=== PATIENT | female | born 2000 | race Caucasian/White ===

== ENCOUNTER 2023-01-06 19:48 | Emergency (ER) | payer MEDICAID, SELFPAY ==
[2023-01-06 19:51] VITALS: BP 130/92; PULSE 90; RESP 18; TEMP 36.6; O2SAT 100; BMI 25.8
--- NOTE | 2023-01-06 19:51 | ED.SKABFB ---
HPI - Skin/Abscess/Foreign Bdy General Chief complaint: Skin/Abscess/Foreign Body Stated complaint: rash on neck and stomach Time Seen by Provider: 01/06/23 19:55 Source: patient Mode of arrival: ambulatory Limitations: no limitations History of Present Illness HPI narrative: 22 yo female presents to the ER for evaluation of a red, raised, itchy rash on her neck and abdomen that started 5 days ago. She thought it was eczema so she was putting hydrocortisone cream on it with no improvement. She states she also tried Icy Hot because the itch was keeping her up at night. She denies any new lotions, soaps or detergents. No facial swelling, lip swelling or SOB. No outdoor exposures to poison gurdeep. MD complaint: rash Onset (ago): day(s) (5) Location: neck (& abdomen) Severity: moderate Quality: burning and pruritic Pain Consistency: constant Relieving factors: none Exacerbating factors: none Context: none Associated symptoms: denies other symptoms Treatments prior to arrival: OTC topical medication Related Data Previous Rx's Medication Instructions Recorded diphenhydramine HCl 25 mg tablet 50 mg PO TID PRN itching #30 tabs 01/06/23 (Benadryl Allergy) hydrocortisone 2.5 % topical 1 appl topical BID PRN itching #20 01/06/23 ointment grams prednisone 50 mg tablet 50 mg PO DAILY #5 tabs 01/06/23 Allergies Allergy/AdvReac Type Severity Reaction Status Date / Time No Known Allergies Allergy Verified 01/06/23 19:53 Review of Systems Review of Systems: Yes all other systems are reviewed and are negative Physical Exam Vital Signs: Vital Signs: Last Vital Signs Temp 97.8 F 01/06/23 19:51 Pulse 90 01/06/23 19:51 Resp 18 01/06/23 19:51 BP 130/92 H 01/06/23 19:51 Pulse Ox 100 01/06/23 19:51 O2 Del Method Room Air 01/06/23 19:51 BMI result Body Mass Index 25.8 Appearance: Alert. Oriented X3. No acute distress. HEENT: normal external inspection CVS: Normal heart rate and rhythm. Pulses normal. Respiratory: No respiratory distress. Skin: Skin warm and dry. Normal skin color. Normal skin turgor. There is a erythematous, raised, area of patchy lesions on the left side of the neck extending from below the ear to just above the clavicle. There is a large, slightly raised, erythematous patch of skin on her right lower quadrant of her abdomen, at least 10 cm around that is warm, nontender, urticarial in appearance Extremities: Normal inspection x4, no joint swelling, no rash on her extremities. Neuro: Oriented X 3. Grossly normal, nonfocal Medical Decision Making Medical Decision Making MDM Narrative: 22-year-old female presents to the ER for evaluation of a pruritic, erythematous rash on her neck and abdomen for the last 5 days. The appearance of the rash on the neck and abdomen have different morphologies. They are both itchy, red and warm however. Will relief with topical steroids. Will plan to start systemic steroids and Benadryl for her rash in symptoms. She will follow-up with her primary care doctor. She is stable for discharge home. Return precautions were discussed. Differential Diagnosis Differential Diagnoses: The differential diagnosis associated with the presentation includes Contact dermatitis, allergic dermatitis, eczema, poison gurdeep, cellulitis Prescription Management I considered prescription management with: Antibiotic and Other (Steroids) Chronic Conditions Patient?s care impacted by: Other (eczema) Critical Care Time Critical Care Time Critical Care Time: No Discharge Plan Discharge Clinical Impression: Rash Patient Disposition: Home, Self-Care Instructions: Acute Rash (ED) Additional Instructions: Take the prescribed steroid medication (prednisone) as directed. Complete the entire course. Start taking it tonight. Also take the prescribed Benadryl every 6-8 hours as needed for itching. Take 1-2 tablets. This might make it itchy but it will help with the rash. Use the prescribed ointment as needed for itching as well. Try cool compresses for itching, do not use icy Hot or any other creams or lotions to the area. Follow-up with your primary care doctor. If you develop new or worsening symptoms call 911 or come back to the ER for further evaluation. Prescriptions: New prednisone 50 mg tablet 50 mg PO DAILY Qty: 5 0RF diphenhydramine HCl [Benadryl Allergy] 25 mg tablet 50 mg PO TID PRN (Reason: itching) Qty: 30 0RF hydrocortisone 2.5 % ointment 1 appl topical BID PRN (Reason: itching) Qty: 20 0RF Interventions: ED Discharge Assessment Last Done: 01/06/23 19:57
== END 2023-01-06 20:23 | disposition home or self-care (01) ==
LOC: HO.ED 20:22
PROVIDERS: Emergency Provider Emergency Medicine
DX: R21 Rash and other nonspecific skin eruption (principal)
CPT/HCPCS: 99282; 99283

== ENCOUNTER 2024-12-30 19:41 | Emergency (ER) | payer SELFPAY ==
[2024-12-30 19:45] VITALS: BP 135/65; PULSE 82; RESP 17; TEMP 36.9; O2SAT 99
--- NOTE | 2024-12-30 19:47 | ED.GENADULT ---
HPI - General Adult General Chief complaint: Eye Problems Stated complaint: left eye pain, Swollen, Vision impair Related Data Previous Rx's ?Medication ?Instructions ?Recorded diphenhydramine HCl 25 mg tablet 50 mg (2 x 25 mg) PO TID PRN 01/06/23 (Benadryl Allergy) itching #30 tabs hydrocortisone 2.5 % topical 1 appl topical BID PRN itching #20 01/06/23 ointment grams prednisone 50 mg tablet 50 mg PO DAILY #5 tabs 01/06/23 Allergies Allergy/AdvReac Type Severity Reaction Status Date / Time No Known Allergies Allergy Verified 12/30/24 19:47 [facility] Social History Social History Advance Directives: No Advance Directives Information Provided: No Do you have a plan to hurt others: No Plan Physical Exam ED Vital Signs: BMI result Body Mass Index 30.0 Course Course Course Narrative: RME, this is a rapid medical exam performed by Clement Lai please refer to primary provider for complete H&P- 24-year-old female presents for evaluation of left eye pain and redness. She reports his symptoms started a few weeks ago. Today she started to complain of blurry in his. She is currently wearing glasses but does wear contacts as well. She denies any injury to the eye. Plan for fluorescein staining and intra-ocular pressures Discharge Plan Discharge Clinical Impression: Acute eye pain Patient Disposition: Left W/O Completing Treatment Prescriptions: No Action prednisone 50 mg tablet 50 mg PO DAILY Qty: 5 0RF diphenhydramine HCl [Benadryl Allergy] 25 mg tablet 50 mg PO TID PRN (Reason: itching) Qty: 30 0RF hydrocortisone 2.5 % ointment 1 appl topical BID PRN (Reason: itching) Qty: 20 0RF Discharge Date/Time: 12/31/24 00:09
--- OUTSIDE RECORDS SUMMARY | 2024-12-30 22:24 | XMS_ITS | Clinical Summary ---
Author Organization [facility] Address [id number] [place] [id number] Care Team Providers Care Putty Glazer Name Role Phone Evelyn Ayala MD Primary Care Provider Unavailab le Social History Tobacco Use Types Packs/Day Years Used Date Smoking Tobacco: Never Assessed Comments Unknown Sex and Gender Information Value Date Recorded Sex Assigned at Not on file Legal Sex Female 10:29 AM EST Gender Identity Not on file Sexual Orientation Not on file Plan of Treatment Health Maintenance Due Date Last Done Comments Gonorrhea/Chlamydia Screening 2000 Cervical Cancer Screening: Pap Smear 2021 DTaP,Tdap,and Td Vaccines (7 - Td or Tdap) 04/07/2023 04/07/2013, 09/17/2005, 12/15/2001, Additional history exists COVID-19 Vaccine ( season) 2024 Influenza Vaccine (Season Ended) 2025 08/15/2014, 06/02/2013, 07/07/2012, Additional history exists Pneumococcal Vaccine: Pediatrics (0 to 5 Years) and At-Risk Patients (6 to 64 Years) Aged Out 02/01/2001, 2000, 2000 No longer eligible based on patient's age to complete this topic Hepatitis B Vaccines Completed 05/28/2001, 2000, 2000 HIB Vaccines Completed 10/04/2001, 01/09, 2000, Additional history exists IPV Vaccines Completed 09/17/2005, 09/11, 05/28/2001, Additional history exists MMR Vaccines Completed 09/17/2005, 10/04/2001 Varicella Vaccines Completed 10/18/2009, 08/24/2003 Hepatitis A Vaccines Completed 01/04/2010, 12/02/19 08 HPV Vaccines Completed 11/27/2015, 01/2015, 06/02/2013 Meningococcal ACWY Vaccine Completed 12/18/2016, Meningococcal B Vaccine Aged Out No l onger eligible based on patient's age to complete this topic RSV Immunization Patients Under 20 months Aged Out No longer eligible based on patient's age to complete this topic Care Teams Putty Glazer Relationship Specialty Start Date End Date Evelyn Ayala MD PCP - General Pediatrics 06/26/08
--- NOTE | 2024-12-31 00:08 | PC.NURSE ---
pt stated to this rn she no longer wants to wait as she has already been waiting a while.
== END 2024-12-31 00:09 | disposition left against medical advice (07) ==
PROVIDERS: Emergency Provider Emergency Medicine Emergency Medical Services
DX: H57.12 Ocular pain, left eye (principal)
CPT/HCPCS: 99281